=== PATIENT | male | born 1960 | race Two or more races ===

== ENCOUNTER 2021-08-30 09:45 | Outpatient (REF) | payer OTHER, SELFPAY ==
[2021-08-30 10:47] LABS: COVID-19 Test Negative (Negative); IDNOW Serial# 16C4AD1C
== END 2021-08-30 09:46 | disposition home or self-care (01) ==
LOC: HO.LAB 09:45
PROVIDERS: Visit Provider Internal Medicine
DX: Z20.822 Contact with and (suspected) exposure to COVID-19 (principal)
CPT/HCPCS: 87635; C9803

== ENCOUNTER 2024-02-28 14:58 | Outpatient (AMB) | payer OTHER, MEDICAID, SELFPAY ==
--- NOTE | 2024-02-28 14:58 | MHC.OFFVIS ---
Vital Signs 02/28/24 15:06 Height 5 ft 6 in Weight 160 lb 14.999 oz BMI 26.0 BP 124/80 Blood Pressure Location Lt brachial Position Sitting Respiration 18 Pulse 71 Pulse Source Pulse Oximeter Pulse Oximetry (%) 96 Oxygen Delivery Method Room Air Intake Visit Reasons: FM/CM Intake Note: Patient presents for FM. Allergies No Known Allergies Allergy (Verified 02/28/24 15:01) Medication List - Last Reconciled 02/28/24 by Gisela Myers MD acetaminophen mg PO duloxetine 60 mg PO DAILY gabapentin 300 mg PO TID melatonin 5 mg PO BEDTIME tramadol 50 mg PO BID PRN HPI Comments Details: This is a 63-year-old male who presents for evaluation of diffuse pain. He has diffuse pain everywhere. Pain in his neck, his back, usually worse at night. Difficulty falling asleep. He denies any fevers or weight loss. Denies any history of DVT/PE. Patient was told that he has fibromyalgia by 2 previous physicians. He was prescribed duloxetine and gabapentin. He did not feel that they provided much relief. [facility] Surgical History Hx of fracture of wrist History of colonoscopy Hx of fracture of ankle Hx of appendectomy Family History Mother Acute CVA (cerebrovascular accident) Essential hypertension Father Essential hypertension Kidney disorder Parkinsonism Malignant lymphoma Social History Alcohol intake: current Alcohol intake frequency: holidays/special occasions only Patient Tobacco Use Status: Never used Tobacco Review of Systems Const Reports fatigue, Denies fever(s), Reports weakness and Denies weight loss ENT Reports neck pain Musc Reports back pain, Reports myalgias, Reports arthralgias, Reports neck pain and Reports stiffness Neuro Reports weakness Psych Reports abnormal sleep pattern and Reports depression Endo Reports fatigue Physical Exam Vital Signs: Last Vital Signs Pulse 71 02/28/24 15:06 Resp 18 02/28/24 15:06 BP 124/80 02/28/24 15:06 Pulse Ox 96 02/28/24 15:06 Oxygen Delivery Method Room Air 02/28/24 15:06 BMI result Body Mass Index 26.0 Const General: cooperative, healthy appearing and comfortable Nutritional Appearance: overweight Orientation/consciousness: patient oriented x3 Limitations: no limitations HEENT Head: Yes normocephalic and Yes atraumatic Resp Effort & Inspection: normal respiratory effort and able to speak in complete sentences Auscultation: clear to auscultation bilaterally Cardio Rate: regular rate Rhythm: regular rhythm Skin General skin exam: no rashes or lesions noted Neuro General: patient oriented x3 Extrem Other: Osteoarthritic changes of both hands with prominent Heberden's nodes that are mildly tender No active synovitis Normal nailfold capillaroscopy Numerous fibromyalgia tender points Assessment & Plan Assessment & Plan (1) Fibromyalgia, primary: Code(s): M79.7 - Fibromyalgia Category: Medical Plan: This is a 63-year-old male who presents for evaluation of diffuse pain. Upon evaluation I do not see any signs suggestive of an autoimmune rheumatic disease. Clinical picture consistent with fibromyalgia Discussed management of fibromyalgia with patient. Is a noninflammatory, non-autoimmune central afferent processing disorder leading to a diffuse pain syndrome. Patient follows up regularly with a therapist. I suggested evaluation by a psychiatrist as well. Try to follow sleep hygiene practices. Consider a referral for a sleep study by his PCP to rule out FLORIDALMA. Patient would benefit from increased physical activity, either through formal physical therapy or by joining a gym. Advised patient that she should start activity slowly and increase as tolerated. Consider low-impact exercises such as walking, aqua therapy, stretching, lifting light weights. Look up mind your fibro podcast on youtube Follow-up with PCP Plan I spent 20 minutes reviewing patient's chart, evaluating patient, counseling patient and documenting in the chart Coding Level of Care Code New Pt Level 3 (21019) Diagnoses Fibromyalgia, primary M79.7
[2024-02-28 15:06] VITALS: BP 124/80; PULSE 71; RESP 18; O2SAT 96; BMI 26.0
== END 2024-02-28 15:31 | disposition home or self-care (01) ==
PROVIDERS: PCP Internal Medicine; Visit Provider Student in an Organized Health Care Education/Training Program
DX: M79.7 Fibromyalgia (principal)
CPT/HCPCS: 99203

== ENCOUNTER → 2024-02-28 14:58 | Outpatient (BNVA) | payer OTHER, MEDICAID, SELFPAY | PROVIDERS: PCP Internal Medicine; Visit Provider Student in an Organized Health Care Education/Training Program ==